=== PATIENT | male | born 2000 | race Caucasian/White ===

== ENCOUNTER 2020-01-18 00:20 | Emergency (ER) | payer BC, SELFPAY ==
[2020-01-18 08:42] VITALS: TEMP 98.9
[2020-01-18 08:43] VITALS: BP 114/76; O2SAT 99
== END 2020-01-18 01:55 ==
LOC: ER 00:20
DX: S00.90XA Unspecified superficial injury of unspecified part of head, initial encounter (principal); Y04.2XXA Assault by strike against or bumped into by another person, initial encounter; Y93.9 Activity, unspecified; Y92.149 Unspecified place in prison as the place of occurrence of the external cause
CPT/HCPCS: 70450; 71045; 99284